=== PATIENT | male | born 1985 | race Caucasian/White ===

== ENCOUNTER 2017-08-30 22:20 | Emergency (ER) | payer SELFPAY ==
[2017-08-30 22:43] VITALS: TEMP 97.9
[2017-08-30] MEDS ORDERED: SODIUM CHLORIDE 0.9% (FLUSH) 10 ML SYG IV PRN (22:52)
[2017-08-30] MEDS ORDERED: ONDANSETRON INJ 4 MG/2 ML VIAL IV ONE (22:52)
--- NOTE | 2017-08-30 23:58 | ED.PDOC ---
History of Present Illness - General Chief Complaint: Cardiovascular Problem Stated Complaint: chest pain, SOB Time Seen by Provider: 08/30/17 22:50 Source: patient, RN notes reviewed, Vital Signs reviewed, EMS notes reviewed, family Exam Limitations: no limitations - History of Present Illness Timing/Duration: 1-3 hours Severity: moderate Location: substernal, epigastric, shoulder, back, abdomen Activities at Onset: other - drinking etoh Prior Chest Pain/Cardiac Workup: no prior chest pain, no prior cardiac workup, non-cardiac Improving Factors: rest Worsening Factors: nothing Nitro Today/Relief: no nitro taken today Aspirin Treatment Today: no aspirin today Associated Symptoms: chest pain, headaches, malaise, nausea/vomiting, seizure, shortness of breath, syncope, weakness Allergies/Adverse Reactions: Allergies NO KNOWN ALLERGY Allergy (Verified 08/30/17 22:42) Home Medications: Ambulatory Orders Ranitidine HCl [Zantac] 300 mg PO DAILY 14 Days #14 tab 08/31/17 Review of Systems - Review of Systems Constitutional: States: malaise, weakness. Denies: chills, fever EENTM: Denies: blurred vision, tearing, ear pain, nose pain, throat pain, mouth pain Respiratory: Denies: cough, orthopnea, short of breath, wheezing Cardiology: States: chest pain, syncope. Denies: edema, palpitations Gastrointestinal/Abdominal: States: abdominal pain, nausea. Denies: constipation, diarrhea, vomiting Genitourinary: Denies: dysuria, frequency, hematuria Musculoskeletal: Denies: joint pain, joint swelling, muscle pain, muscle stiffness Skin: Denies: dryness Neurological: States: headache, paresthesia, seizure. Denies: depressed, numbness, tingling, tremors, weakness Endocrine: Denies: excessive sweating, flushing, intolerance to cold, intolerance to heat, increased hunger, increased thirst Hematologic/Lymphatic: Denies: anemia, blood clots Past Medical History (General) - Patient Medical History Hx Seizures: No Hx Stroke: No Hx Dementia: No Hx Asthma: No Hx of COPD: No Hx Cardiac Disorders: No Hx Congestive Heart Failure: No Hx Pacemaker: No Hx Hypertension: No Hx Thyroid Disease: No Hx Diabetes: No Hx Gastroesophageal Reflux: No Hx Renal Disease: No Hx Cancer: No Hx of HIV: No Hx Hepatitis C: No Hx MRSA: No Surgical History: appendectomy - Vaccination History Hx Tetanus, Diphtheria Vaccination: Yes Hx Influenza Vaccination: No - Social History Hx Tobacco Use: Yes Hx Alcohol Use: Yes Hx Substance Use: Yes Hx Substance Use Treatment: No Hx Depression: No Family Medical History - Family History Mother Family History: No Known Living Status: Still Living Physical Exam - Physical Exam General Appearance: Alert, Anxious Eyes, Ears, Nose, Throat Exam: PERRL/EOMI, normal ENT inspection Neck: non-tender, full range of motion, supple Respiratory: lungs clear, normal breath sounds, no respiratory distress, no accessory muscle use, other - chest tender to the left side, left arm tender to palpation Cardiovascular/Chest: normal peripheral pulses, regular rate, rhythm, no edema, no gallop, no JVD, no murmur Peripheral Pulses: radial,right: 2+, radial,left: 2+ Gastrointestinal/Abdominal: normal bowel sounds, non tender, soft, no organomegaly, no pulsatile mass Extremity: normal range of motion, non-tender, normal inspection 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, no motor/sensory deficits, alert, normal mood/affect, oriented x 3 Skin Exam: normal color, warm/dry Lymphatic: no adenopathy Progress - Progress Progress: 08/30/17 23:59 08/30/17 22:52 IV Care:Saline Lock per Protoc QSHIFT Telemetry .ONCE Chest w/Contrast [CT] Stat Sodium Chloride 0.9% (Flush) [Saline Flush Syringe] 10 ml IV PRN PRN EKG Stat Pulse Ox Stat 08/30/17 22:53 Hold Metformin x 48Hrs [id number] 08/30/17 22:55 Head [CT] Stat Laboratory Results WBC 10.6 K/mm3 (4.8-10.8) 08/30/17 23:00 RBC 4.86 M/mm3 (4.70-6.10) 08/30/17 23:00 Hgb 15.2 gm/dL (14.0-18.0) 08/30/17 23:00 Hct 44.1 % (42.0-52.0) 08/30/17 23:00 MCV 90.8 fl (80.0-94.0) 08/30/17 23:00 MCH 31.2 pg (27.0-31.0) H 08/30/17 23:00 MCHC 34.3 g/dL (33.0-37.0) 08/30/17 23:00 RDW 13.5 % (11.5-14.5) 08/30/17 23:00 Plt Count 312 K/mm3 (130-400) 08/30/17 23:00 MPV 7.8 fl (7.40-10.4) 08/30/17 23:00 Absolute Neuts (auto) 6.50 K/uL (1.8-6.8) 08/30/17 23:00 Absolute Lymphs (auto) 2.70 K/uL (1.0-3.4) 08/30/17 23:00 Absolute Monos (auto) 1.00 K/uL (0.2-0.8) H 08/30/17 23:00 Absolute Eos (auto) 0.30 K/uL (0.0-0.4) 08/30/17 23:00 Absolute Basos (auto) 0.10 K/uL (0.0-0.1) 08/30/17 23:00 Neutrophils % 61.4 % (42.0-78.0) 08/30/17 23:00 Lymphocytes % 24.9 % (20.0-50.0) 08/30/17 23:00 Monocytes % 9.8 % (2.0-9.0) H 08/30/17 23:00 Eosinophils % 2.7 % (1.0-5.0) 08/30/17 23:00 Basophils % 1.2 % (0.0-2.0) 08/30/17 23:00 PT 10.4 SECONDS (9.4-12.5) 08/30/17 23:00 INR 0.920 08/30/17 23:00 PTT (SP) 29.1 SECONDS (25.1-36.5) 08/30/17 23:00 Sodium 140 mmol/L (135-145) 08/30/17 23:00 Potassium 3.5 mmol/L (3.6-5.0) L 08/30/17 23:00 Chloride 109 mmol/L (101-111) 08/30/17 23:00 Carbon Dioxide 21 mmol/L (21-31) 08/30/17 23:00 Anion Gap 13.5 (12-18) 08/30/17 23:00 BUN 7 mg/dL (7-18) 08/30/17 23:00 Creatinine 0.57 mg/dL (0.6-1.3) L 08/30/17 23:00 BUN/Creatinine Ratio 12.3 (10-20) 08/30/17 23:00 Random Glucose 87 mg/dL (70-105) 08/30/17 23:00 Serum Osmolality 276.7 mOsm/L (275-295) 08/30/17 23:00 Calcium 8.6 mg/dL (8.4-10.2) 08/30/17 23:00 Magnesium 2.0 mg/dL (1.8-2.5) 08/30/17 23:00 Total Bilirubin 0.7 mg/dL (0.2-1.0) 08/30/17 23:00 Direct Bilirubin 0.1 mg/dL (0-0.2) 08/30/17 23:00 Indirect Bilirubin 0.6 mg/dL (0.2-0.8) 08/30/17 23:00 AST 23 IU/L (10-42) 08/30/17 23:00 ALT 18 IU/L (10-60) 08/30/17 23:00 Alkaline Phosphatase 52 IU/L (42-121) 08/30/17 23:00 Creatine Kinase 316 IU/L (38-174) H* 08/30/17 23:00 CK-MB (CK-2) 1.8 ng/mL (0.0-4.4) 08/30/17 23:00 CK-MB (CK-2) % Not Reportable 08/30/17 23:00 Troponin I < 0.02 ng/mL (0.01-0.05) 08/30/17 23:00 B-Natriuretic Peptide < 5.0 pg/ml (0-100) 08/30/17 23:00 Serum Total Protein 7.4 gm/dL (6.4-8.2) 08/30/17 23:00 Albumin 4.2 g/dl (3.2-5.5) 08/30/17 23:00 Lipase 32 U/L (22-51) 08/30/17 23:00 Urine Opiates Screen Negative ng/mL (1999) 08/30/17 23:10 Urine Barbiturates Negative ng/mL (200) 08/30/17 23:10 Ur Phencyclidine Scrn Negative ng/mL (25) 08/30/17 23:10 U Amphetamin/Meth Scrn Negative ng/mL (1000) 08/30/17 23:10 U Benzodiazepines Scrn Negative ng/mL (200) 08/30/17 23:10 U Cocaine Metab Screen Negative ng/mL (300) 08/30/17 23:10 U Cannabinoids Screen Negative ng/mL (50) 08/30/17 23:10 Ethyl Alcohol 206.90 mg/dL (0-79) H* 08/30/17 23:00 08/31/17 00:12 pt asleep in no distress 08/31/17 02:01 08/30/17 22:52 IV Care:Saline Lock per Protoc QSHIFT Telemetry .ONCE Sodium Chloride 0.9% (Flush) [Saline Flush Syringe] 10 ml IV PRN PRN EKG Stat Pulse Ox Stat 08/30/17 22:53 Hold Metformin x 48Hrs [id number] Laboratory Results WBC 10.6 K/mm3 (4.8-10.8) 08/30/17 23:00 RBC 4.86 M/mm3 (4.70-6.10) 08/30/17 23:00 Hgb 15.2 gm/dL (14.0-18.0) 08/30/17 23:00 Hct 44.1 % (42.0-52.0) 08/30/17 23:00 MCV 90.8 fl (80.0-94.0) 08/30/17 23:00 MCH 31.2 pg (27.0-31.0) H 08/30/17 23:00 MCHC 34.3 g/dL (33.0-37.0) 08/30/17 23:00 RDW 13.5 % (11.5-14.5) 08/30/17 23:00 Plt Count 312 K/mm3 (130-400) 08/30/17 23:00 MPV 7.8 fl (7.40-10.4) 08/30/17 23:00 Absolute Neuts (auto) 6.50 K/uL (1.8-6.8) 08/30/17 23:00 Absolute Lymphs (auto) 2.70 K/uL (1.0-3.4) 08/30/17 23:00 Absolute Monos (auto) 1.00 K/uL (0.2-0.8) H 08/30/17 23:00 Absolute Eos (auto) 0.30 K/uL (0.0-0.4) 08/30/17 23:00 Absolute Basos (auto) 0.10 K/uL (0.0-0.1) 08/30/17 23:00 Neutrophils % 61.4 % (42.0-78.0) 08/30/17 23:00 Lymphocytes % 24.9 % (20.0-50.0) 08/30/17 23:00 Monocytes % 9.8 % (2.0-9.0) H 08/30/17 23:00 Eosinophils % 2.7 % (1.0-5.0) 08/30/17 23:00 Basophils % 1.2 % (0.0-2.0) 08/30/17 23:00 PT 10.4 SECONDS (9.4-12.5) 08/30/17 23:00 INR 0.920 08/30/17 23:00 PTT (SP) 29.1 SECONDS (25.1-36.5) 08/30/17 23:00 Sodium 140 mmol/L (135-145) 08/30/17 23:00 Potassium 3.5 mmol/L (3.6-5.0) L 08/30/17 23:00 Chloride 109 mmol/L (101-111) 08/30/17 23:00 Carbon Dioxide 21 mmol/L (21-31) 08/30/17 23:00 Anion Gap 13.5 (12-18) 08/30/17 23:00 BUN 7 mg/dL (7-18) 08/30/17 23:00 Creatinine 0.57 mg/dL (0.6-1.3) L 08/30/17 23:00 BUN/Creatinine Ratio 12.3 (10-20) 08/30/17 23:00 Random Glucose 87 mg/dL (70-105) 08/30/17 23:00 Serum Osmolality 276.7 mOsm/L (275-295) 08/30/17 23:00 Calcium 8.6 mg/dL (8.4-10.2) 08/30/17 23:00 Magnesium 2.0 mg/dL (1.8-2.5) 08/30/17 23:00 Total Bilirubin 0.7 mg/dL (0.2-1.0) 08/30/17 23:00 Direct Bilirubin 0.1 mg/dL (0-0.2) 08/30/17 23:00 Indirect Bilirubin 0.6 mg/dL (0.2-0.8) 08/30/17 23:00 AST 23 IU/L (10-42) 08/30/17 23:00 ALT 18 IU/L (10-60) 08/30/17 23:00 Alkaline Phosphatase 52 IU/L (42-121) 08/30/17 23:00 Creatine Kinase 277 IU/L (38-174) H* 08/31/17 01:30 CK-MB (CK-2) 1.6 ng/mL (0.0-4.4) 08/31/17 01:30 CK-MB (CK-2) % Not Reportable 08/31/17 01:30 Troponin I < 0.02 ng/mL (0.01-0.05) 08/31/17 01:30 B-Natriuretic Peptide < 5.0 pg/ml (0-100) 08/30/17 23:00 Serum Total Protein 7.4 gm/dL (6.4-8.2) 08/30/17 23:00 Albumin 4.2 g/dl (3.2-5.5) 08/30/17 23:00 Lipase 32 U/L (22-51) 08/30/17 23:00 Urine Opiates Screen Negative ng/mL (2000) 08/30/17 23:10 Urine Barbiturates Negative ng/mL (200) 08/30/17 23:10 Ur Phencyclidine Scrn Negative ng/mL (25) 08/30/17 23:10 U Amphetamin/Meth Scrn Negative ng/mL (1000) 08/30/17 23:10 U Benzodiazepines Scrn Negative ng/mL (200) 08/30/17 23:10 U Cocaine Metab Screen Negative ng/mL (300) 08/30/17 23:10 U Cannabinoids Screen Negative ng/mL (50) 08/30/17 23:10 Ethyl Alcohol 206.90 mg/dL (0-79) H* 08/30/17 23:00 08/30/17 22:52 IV Care:Saline Lock per Protoc QSHIFT Telemetry .ONCE Sodium Chloride 0.9% (Flush) [Saline Flush Syringe] 10 ml IV PRN PRN EKG Stat Pulse Ox Stat 08/30/17 22:53 Hold Metformin x 48Hrs [id number] Laboratory Results - last 24 hr 08/30/17 08/30/17 08/30/17 23:00 23:00 23:00 WBC 10.6 RBC 4.86 Hgb 15.2 Hct 44.1 MCV 90.8 MCH 31.2 H MCHC 34.3 RDW 13.5 Plt Count 312 MPV 7.8 Absolute Neuts (auto) 6.50 Absolute Lymphs (auto) 2.70 Absolute Monos (auto) 1.00 H Absolute Eos (auto) 0.30 Absolute Basos (auto) 0.10 Neutrophils % 61.4 Lymphocytes % 24.9 Monocytes % 9.8 H Eosinophils % 2.7 Basophils % 1.2 PT 10.4 INR 0.920 PTT (SP) 29.1 Sodium 140 Potassium 3.5 L Chloride 109 Carbon Dioxide 21 Anion Gap 13.5 BUN 7 Creatinine 0.57 L BUN/Creatinine Ratio 12.3 Random Glucose 87 Serum Osmolality 276.7 Calcium 8.6 Magnesium 2.0 Total Bilirubin 0.7 Direct Bilirubin 0.1 Indirect Bilirubin 0.6 AST 23 ALT 18 Alkaline Phosphatase 52 Creatine Kinase 316 H* CK-MB (CK-2) 1.8 CK-MB (CK-2) % Not Reportable Troponin I < 0.02 B-Natriuretic Peptide < 5.0 Serum Total Protein 7.4 Albumin 4.2 Lipase 32 Urine Opiates Screen Urine Barbiturates Ur Phencyclidine Scrn U Amphetamin/Meth Scrn U Benzodiazepines Scrn U Cocaine Metab Screen U Cannabinoids Screen Ethyl Alcohol 206.90 H* 08/30/17 08/31/17 23:10 01:30 WBC RBC Hgb Hct MCV MCH MCHC RDW Plt Count MPV Absolute Neuts (auto) Absolute Lymphs (auto) Absolute Monos (auto) Absolute Eos (auto) Absolute Basos (auto) Neutrophils % Lymphocytes % Monocytes % Eosinophils % Basophils % PT INR PTT (SP) Sodium Potassium Chloride Carbon Dioxide Anion Gap BUN Creatinine BUN/Creatinine Ratio Random Glucose Serum Osmolality Calcium Magnesium Total Bilirubin Direct Bilirubin Indirect Bilirubin AST ALT Alkaline Phosphatase Creatine Kinase 277 H* CK-MB (CK-2) 1.6 CK-MB (CK-2) % Not Reportable Troponin I < 0.02 B-Natriuretic Peptide Serum Total Protein Albumin Lipase Urine Opiates Screen Negative Urine Barbiturates Negative Ur Phencyclidine Scrn Negative U Amphetamin/Meth Scrn Negative U Benzodiazepines Scrn Negative U Cocaine Metab Screen Negative U Cannabinoids Screen Negative Ethyl Alcohol - EKG/XRAY/CT EKG: Sinus Comments: rate 87, pr 176, qrs 100, qtc 452 Departure - Departure Clinical Impression: Precordial chest pain, Alcohol intoxication, Left-sided chest wall pain, Seizure Time of Disposition: 02:00 Disposition: Discharge to Home or Self Care Condition: Excellent Departure Forms: ED Discharge - Pt. 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
--- NOTE | 2017-08-31 00:09 | CT ---
EXAM: CT head without contrast. INDICATION: Seizure. TECHNIQUE: Contiguous axial CT images of the brain. Intravenous contrast: Absent. DLP 773 mGy-cm. This exam was performed according to our departmental dose-optimization program, which includes automated exposure control, adjustment of the mA and/or kV according to patient size and/or use of iterative reconstruction technique. COMPARISON: None. FINDINGS: Subcutaneous: Unremarkable. No acute intracranial hemorrhage. No midline shift. No mass effect. Ventricles: No hydrocephalus. Gonzalez-white differentiation preserved. Paranasal sinuses/mastoid air cells: Visualized portions are aerated. Bones/orbits: Visualized portions are unremarkable. IMPRESSION: 1. No CT evidence of acute intracranial hemorrhage. Electronically signed by: Lonnie Suarez MD 08/31/2017 12:08 AM [facility] [facility] Workstation: [id number]
--- NOTE | 2017-08-31 00:18 | CT ---
EXAM: CT chest with contrast. INDICATION: Chest pain. TECHNIQUE: Contiguous axial CT images of the chest. Intravenous contrast: Present. DLP 687 mGy-cm. This exam was performed according to our departmental dose-optimization program, which includes automated exposure control, adjustment of the mA and/or kV according to patient size and/or use of iterative reconstruction technique. COMPARISON: None. FINDINGS: Upper abdomen: Partially imaged. Thoracic aorta: Unremarkable. Heart: Unremarkable. Mediastinum: No pathologic sized middle mediastinal lymphadenopathy. Tracheobronchial tree: Unremarkable. Lungs: Lobar consolidation: Negative. Pleural effusion: Negative. Pneumothorax: Negative. Other: Negative. Bones: Unremarkable. IMPRESSION: 1. No CT evidence of acute process in the chest. Electronically signed by: Lonnie Suarez MD 08/31/2017 12:16 AM [facility] Workstation: [id number]
[2017-08-31 02:14] VITALS: BP 107/56; O2SAT 99
== END 2017-08-31 02:15 | disposition home or self-care (01) ==
LOC: ER 22:20
DX: R07.89 Other chest pain (principal); R07.2 Precordial pain; R56.9 Unspecified convulsions; F10.129 Alcohol abuse with intoxication, unspecified; Y90.7 Blood alcohol level of 200-239 mg/100 ml; Z87.891 Personal history of nicotine dependence
CPT/HCPCS: 36415; 70450; 71260; 80048; 80076; 80307; 80320; 82550; 82553; 83690; 83880; 84484; 85025; 85610; 85730; 93005; 94760; J2405